=== PATIENT | female | born 1975 | race Two or more races ===

== ENCOUNTER → 2017-03-12 | Outpatient (CLI) | payer OTHER | END | disposition disaster alternative care site (69) | LOC: GRAD 15:00 | DX: Q61.3 Polycystic kidney, unspecified (principal); Q61.02 Congenital multiple renal cysts ==

== ENCOUNTER 2017-04-11 03:02 | Emergency (ER) | payer OTHER ==
--- NOTE | ~2017-04-11 | ER ---
PATIENT'S NAME: [facility] AGE: 41 Y [address] ROOM: [place] [id number] LOCATION: [facility] ADMIT DATE: 04/11/2017 ER/Outpatient Report DISCHARGE DATE: 04/11/2017 FAMILY PHYSICIAN: PHYSICIAN, NO ATTENDING PHYSICIAN: Aydin Esquivel Time of Arrival: Admission date and time documented on the medical record. Time of Evaluation: I saw the patient at 0315 hours. CHIEF COMPLAINT: Chest pain. HISTORY OF PRESENT ILLNESS: This patient is a 41-year-old female, who comes in with left anterior chest pain and left shoulder pain. She has had this about an hour prior to admission to the emergency room. She was sitting and talking to her friend when this started. Had a little bit of nausea, but no diaphoresis, shortness of breath, lightheadedness or dizziness. No fall or trauma. No recent cold, coughs, flus, fever, chills, or sweats. No abdominal pain. No joint or muscle swelling, redness, or pain. No skin eruptions or rash. No endocrine problems, neuro changes, or psych issues. HOME MEDICATIONS: See attached medication list. ALLERGIES: NONE. SOCIAL HISTORY: Nonsmoker. Nondrinker. SIGNIFICANT PAST MEDICAL HISTORY: Polycystic kidney disease and hypertension. OPERATIONS: None. REVIEW OF SYSTEMS: All systems reviewed by me are negative with the exception of those discussed in the history of present illness. PHYSICAL EXAMINATION: VITAL SIGNS: Temperature 97.1, pulse 53, respirations 16, blood pressure 191/103, and O2 saturation on room air was 100%. Benedict Coma Scale was 15. HEAD: Normocephalic. PATIENT'S NAME: DOC JASSO [facility] AGE: 41 Y [address] ROOM: [place] [id number] LOCATION: [facility] ADMIT DATE: 04/11/2017 ER/Outpatient Report DISCHARGE DATE: 04/11/2017 FAMILY PHYSICIAN: PHYSICIAN, NO ATTENDING PHYSICIAN: Aydin Esquivel EYES, EARS, NOSE, AND THROAT: Clear. NECK: Negative. SPINE: Negative. LUNGS: Clear. HEART: Regular. The patient does have tenderness over the left anterior chest wall to palpation reproducing her pain. ABDOMEN: Soft, nondistended, nontender. Good bowel tones. No organomegaly or abnormal mass palpable. EXTREMITIES: Intact. NEUROVASCULAR: Intact. SKIN: Clear. No skin eruptions or rash. DIAGNOSTIC DATA: EKG showed sinus rhythm. No acute ST elevation, ischemic change, or arrhythmia. Chest x-ray showed no acute infiltrate or changes. We will review x-ray with the radiologist. LABORATORY DATA: [id number] cardiac enzymes x2, 2 hours apart was normal. CPK x2, 2 hours apart was normal. White count 6100, 49 segs, 38 lymphs, 9 monos, 3 eos, 1 baso; hemoglobin 13.2 with hematocrit 39.7; platelet count was 188,000. PTT was 28, pro-time was 9.7, and INR 0.92. CMS was normal except for a low potassium of 3.6, elevated glucose of 108, magnesium was 2. IMPRESSION: Chest pain, noncardiac etiology. Etiology uncertain but most likely musculoskeletal. PLAN: The patient was given nitroglycerin without improvement. She was given 4 baby aspirin orally. She was given Toradol 30 mg IV and dismissed home on Toradol 10 mg 1 every 6 hours x12 doses. Continue present home medications and care. Heating pad to sore areas as needed. Follow up with personal physician as needed. Discussion ensued with the patient concerning my findings and recommendations, she understands. MD JEAN CARLOS VARGAS/modl /[id number] d: 04/11/17 0632 t: 04/11/17 1809, OUTPATIENT REPORT
[2017-04-11 03:39] LABS: BASOPHIL # 0.1 K/uL (0.0-0.2); BASOPHIL % 0.8 %; EOSINOPHIL # 0.2 K/uL (0.0-0.5); HEMATOCRIT 39.7 % (33.0-46.0); HEMOGLOBIN 13.2 g/dL (10.0-15.0); IMMATURE GRANULOCYTE % 0.2 %; LYMPHOCYTE # 2.3 K/uL (0.8-4.0); LYMPHOCYTE % 38.2 %; MCHC 33.2 gm/dL (32.0-36.5); MCV 90.2 fl (83.0-98.0); MONOCYTE # 0.6 K/uL (0.0-1.0); MONOCYTE % 9.2 %; MPV 11.6 fl (9.4-12.4); NEUTROPHIL % 48.6 %; NRBC % 0 /100WBC (0-0.00); PLATELET COUNT 188 K/uL (150-450); RDW-CV 11.7 % (11.9-14.6); WBC 6.1 K/uL (4.0-11.0)
[2017-04-11 03:48] LABS: INR - (THERAPEUTIC) 0.92 (0.92-1.07); PROTIME 9.7 SECONDS (9.8-11.4); PTT 28 SECONDS (25-32)
[2017-04-11 03:59] LABS: ALBUMIN 3.7 gm/dL (3.5-5.0); ALK PHOS 72 IU/L (33-138); ALT 24 IU/L (12-78); ANION GAP 10.6 (10.0-19.0); AST 15 IU/L (10-40); BLOOD UREA NITROGEN 15 mg/dL (6-24); CALCIUM 8.6 mg/dL (8.5-10.5); CHLORIDE 108 mMol/L (96-110); CO2 26 mMol/L (22-32); CPK 100 IU/L (21-215); CREATININE 0.8 mg/dL (0.5-1.1); ESTIMATED GFR (MDRD EQUATION) > 60; POTASSIUM 3.6 mMol/L (3.7-5.1); SODIUM 141 mMol/L (135-145); TOTAL BILIRUBIN 0.4 mg/dL (0.0-1.5); TOTAL PROTEIN 7.4 g/dL (6.0-8.4)
[2017-04-11 05:43] LABS: CPK 92 IU/L (21-215)
== END 2017-04-11 06:03 | disposition disaster alternative care site (69) ==
LOC: GMED 03:02
PROVIDERS: Emergency Medicine
DX: R07.89 Other chest pain (principal); I10 Essential (primary) hypertension; Q61.3 Polycystic kidney, unspecified; Z79.899 Other long term (current) drug therapy
CPT/HCPCS: J1885